=== PATIENT | male | born 1970 | race Caucasian/White ===

== ENCOUNTER 2023-05-17 10:23 | Emergency (ER) | payer MEDICAID ==
[~2023-05-17] VITALS: Ht 177.8 cm; Wt 72.7 kg
[2023-05-17] MEDS ORDERED: QUET50TA PO (10:29)
[2023-05-17] MEDS ORDERED: CITA-144 PO (10:29)
[2023-05-17 10:43] VITALS: TEMP 98.4
[2023-05-17] MEDS ORDERED: LIDOCAINE 1% 10 ML VIAL ID ONE (12:30)
[2023-05-17] MEDS ORDERED: BACITRACIN 0.9 GM PACKET OINTMENT TP ONE (12:30)
[2023-05-17] MEDS ORDERED: CEPH-558 PO (12:57)
[2023-05-17] MEDS ORDERED: CEPHALEXIN MONOHYDRATE 500 MG CAPSULE PO ONE (13:00)
[2023-05-17 13:40] VITALS: BP 117/79; PULSE 80; RESP 12
== END 2023-05-17 13:46 | disposition home or self-care (01) ==
LOC: EMS 10:23
DX: S51.812A Laceration without foreign body of left forearm, initial encounter (principal); F12.90 Cannabis use, unspecified, uncomplicated; Z98.890 Other specified postprocedural states; W26.8XXA Contact with other sharp object(s), not elsewhere classified, initial encounter; Y93.89 Activity, other specified; Y92.89 Other specified places as the place of occurrence of the external cause; Y99.8 Other external cause status
CPT/HCPCS: 99283; 12002; J3490

== ENCOUNTER 2023-05-19 13:20 | Emergency (ER) | payer MEDICAID ==
[~2023-05-19] VITALS: Ht 182.9 cm; Wt 79.5 kg
[~2023-05-19 13:20] MED LIST: CEPH-558 PO; CITA-144 PO; QUET50TA PO
[2023-05-19 13:33] VITALS: BP 117/69; PULSE 67; RESP 16; TEMP 98.3
== END 2023-05-19 14:41 | disposition home or self-care (01) ==
LOC: EMS 13:59
DX: S51.812D Laceration without foreign body of left forearm, subsequent encounter (principal); F12.90 Cannabis use, unspecified, uncomplicated; Z98.890 Other specified postprocedural states; X58.XXXD Exposure to other specified factors, subsequent encounter
CPT/HCPCS: 99281; Z7502

== ENCOUNTER 2023-06-01 09:54 | Emergency (ER) | payer MEDICAID ==
[~2023-06-01] VITALS: Ht 182.9 cm; Wt 81.8 kg
[2023-06-01 10:01] VITALS: TEMP 98.4
[2023-06-01 10:41] VITALS: BP 135/62; PULSE 72; RESP 16
== END 2023-06-01 10:49 | disposition home or self-care (01) ==
LOC: EMS 09:55
DX: S51.812D Laceration without foreign body of left forearm, subsequent encounter (principal); F32.A Depression, unspecified; F12.90 Cannabis use, unspecified, uncomplicated; Z98.890 Other specified postprocedural states; Z48.02 Encounter for removal of sutures; X58.XXXD Exposure to other specified factors, subsequent encounter
CPT/HCPCS: 99281; Z7502

== ENCOUNTER → 2023-07-18 | Emergency (ER) | payer MEDICAID, OTHER ==
[~2023-07-18] VITALS: Ht 182.9 cm; Wt 82.0 kg
[~2023-07-18] MED LIST changes: +QUET100T PO
[2023-07-18 13:49] VITALS: BP 114/72; PULSE 71; RESP 16; TEMP 98.3
== END | disposition still patient (30) ==
LOC: EMS 14:47
DX: F32.A Depression, unspecified (principal); F12.90 Cannabis use, unspecified, uncomplicated; Z76.0 Encounter for issue of repeat prescription; Z98.890 Other specified postprocedural states
CPT/HCPCS: 99281; Z7502

== ENCOUNTER 2023-08-04 13:14 | Emergency (ER) | payer OTHER ==
[~2023-08-04] VITALS: Ht 183.5 cm; Wt 86.4 kg
[~2023-08-04 13:14] MED LIST changes: -CEPH-558 PO; -QUET50TA PO
[2023-08-04 13:41] VITALS: BP 104/51; PULSE 93; RESP 16; TEMP 97.9
== END 2023-08-04 19:11 | disposition left against medical advice (07) ==
LOC: EMS 13:14
DX: Z76.0 Encounter for issue of repeat prescription (principal); Z53.21 Procedure and treatment not carried out due to patient leaving prior to being seen by health care provider
CPT/HCPCS: 99281; Z7502

== ENCOUNTER 2023-08-15 12:41 | Emergency (ER) | payer OTHER ==
[~2023-08-15] VITALS: Ht 185.4 cm; Wt 81.8 kg
[2023-08-15 12:46] VITALS: PULSE 85; TEMP 98.4
[2023-08-15 14:39] VITALS: BP 118/51; RESP 18
[2023-08-15] MEDS ORDERED: QUET100T PO (14:39)
[2023-08-15] MEDS ORDERED: CITA-144 PO (14:39)
== END 2023-08-15 15:14 | disposition home or self-care (01) ==
LOC: EMS 13:56
DX: F32.A Depression, unspecified (principal); F12.90 Cannabis use, unspecified, uncomplicated; Z98.890 Other specified postprocedural states; Z76.0 Encounter for issue of repeat prescription
CPT/HCPCS: 99281; Z7502

== ENCOUNTER 2023-09-05 09:57 | Emergency (ER) | payer OTHER ==
[~2023-09-05] VITALS: Ht 182.9 cm; Wt 84.1 kg
[2023-09-05 10:01] VITALS: BP 112/59; PULSE 79; RESP 14; TEMP 98.4
[2023-09-05] MEDS ORDERED: CITA-144 PO (10:13)
[2023-09-05] MEDS ORDERED: QUET100T PO (10:13)
[2023-09-05] MEDS: CITALOPRAM HYDROBROMIDE 20 MG TABLET PO ONE (10:36)
== END 2023-09-05 10:44 | disposition home or self-care (01) ==
LOC: EMS 09:57
DX: F32.A Depression, unspecified (principal); F12.90 Cannabis use, unspecified, uncomplicated; Z98.890 Other specified postprocedural states; Z76.0 Encounter for issue of repeat prescription
CPT/HCPCS: 99283